=== PATIENT | male | born 1975 | race Caucasian/White ===

== ENCOUNTER 2019-04-16 05:58 | Day surgery (SDC) | payer OTHER ==
[~2019-04-16] VITALS: Ht 177.8 cm; Wt 79.8 kg
--- NOTE | ~2019-04-16 | OP ---
PATIENT NAME: JAHAIRA CAR MEDICAL RECORD: [id number] LOCATION:[id number] ADMISSION DATE: SURGEON: ADAM CHONG MD DATE OF OPERATION: 04/16/2019 PREOPERATIVE DIAGNOSIS: History of recurrent pilonidal cyst abscesses. POSTOPERATIVE DIAGNOSIS: History of recurrent pilonidal cyst abscesses with tunneling to the right. PROCEDURES: Pilonidal cystectomy with placement of the Stravix 3 x 6 cm cryopreserved placental tissue. Dimensions of the excision, including margins, measures 5 cm in the cephalad-caudad direction and 4.5 cm in the medial-lateral dimension and the wound was 3.5 cm deep. The risks, possible complications, and alternatives to the procedure were explained to the patient. He elects to proceed. The discussion specifically included, but was not limited to, bleeding requiring emergency reoperation, infection, recurrence of the pilonidal cyst and wound dehiscence. OPERATIVE COURSE: The patient was conveyed the operating room electively on 04/16/2019. General anesthesia was induced by the anesthesia staff. The patient was placed in the prone jackknife position. The buttocks and lower back were sterilely prepped and draped. There was a midline pore and I advanced the Angiocath through the pore. I then injected a combination of methylene blue and hydrogen peroxide. I then removed the Angiocath. Through the use of double curvilinear incisions, I excised the skin and subcutaneous tissue down to the sacrum. At no time during the operation was there any apparent nerve injury. There was a granulation tract out to the right. I continued to re-excise out to the right excising the skin and subcutaneous tissue as well as the granulation tract. I finally reached the end of the tract. Subcutaneous flaps were created sharply. The dimensions of the debridement are listed above. Hemostasis was achieved with the electrocautery. Cultures were obtained prior to irrigation with hydrogen peroxide and closure. The Stravix cryopreserved placental tissue was then placed in the base of the wound. It was sutured to the base of the wound with 4-0 chromics. The wound was then closed in layers. The deep adipose tissue was closed with interrupted #1 Vicryls. The skin was approximated with multiple interrupted horizontal mattress 2-0 Vicryls. No drain was used. A sterile dressing was applied. The patient was extubated and conveyed to the post-anesthesia care unit where he was in stable condition. It is going to be normal for him to have some drainage from the incision. There is no need for him to follow up with me in the office unless he develops complication related to this operative procedure. I would like to see him out at the shelter on rounds in 3 weeks to remove the sutures. TRANSINT:[id number] Voice Confirmation ID: [id number] DOCUMENT ID: [id number] OPERATIVE REPORT [id number] JAHAIRA CAR ROBERT MD CC: JANETT ELIZONDO MD [id number] DICTATION DATE: 04/16/191912 MERCHANDISE ADJUSTMENT CLERK: 04/17/19 [id number] DEP SDC 04/16/[address] [facility] [address] [place] [address]
[2019-04-16 06:55] LABS: APTT 32.3 SECONDS (22.8-39.4); INR 1.09 (0.85-1.17); PROTIME 13.6 SECONDS (11.6-15.0)
[2019-04-16 07:02] LABS: ALBUMIN 3.7 g/dL (3.4-5.0); ANION GAP 17.1 mmol/L (8-16); BILIRUBIN - TOTAL 0.46 mg/dL (0.2-1.3); CARBON DIOXIDE 22.5 mmol/L (21.0-32.0); CREATININE - SERUM 6.7 mg/dL (0.6-1.3); POTASSIUM - SERUM 4.6 mmol/L (3.5-5.1); PROTEIN - SERUM 6.9 g/dL (6.4-8.2)
[2019-04-16 07:12] LABS: BASOPHILS 0.7 % (0-2); EOSINOPHILS 7.9 % (0-7); HEMATOCRIT 36.4 % (42.0-54.0); HEMOGLOBIN 11.7 g/dL (13.5-17.5); MCH 29.5 pg (26.0-34.0); MCHC 32.1 g/dL (31.0-37.0); MCV 91.7 fL (80.0-100.0); MEAN PLATELET VOLUME 11.1 fL (7.4-10.4); MONOCYTES 9.3 % (2-11); NEUTROPHILS 47.1 % (40-80); PLATELET COUNT 134 10x3/uL (130-400); RBC 3.97 10x6/uL (4.20-6.10); RDW 13.1 % (11.5-14.5); WBC 4.5 10x3/uL (4.8-10.8)
[2019-04-16] MEDS ORDERED: HYDRALAZINE HCL25 MG PO (07:50)
[2019-04-16] MEDS ORDERED: K-DUR20 MEQ PO (07:51)
[2019-04-16] MEDS ORDERED: LASIX80 MG (07:51)
[2019-04-16] MEDS ORDERED: TOPAMAX50 MG PO (07:54)
[2019-04-16] MEDS ORDERED: VITAMIN D31000 UNIT PO (07:54)
[2019-04-16 08:21] VITALS: Ht 177.8 cm; Wt 79.8 kg
== END 2019-04-16 15:08 | disposition home or self-care (01) ==
LOC: D.OPS 05:58
PROVIDERS: Anesthesiology; ATTEND Surgery
DX: L05.01 Pilonidal cyst with abscess (principal)